=== PATIENT | male | born 1995 | race Caucasian/White ===

== ENCOUNTER 2017-10-13 21:30 | Emergency (ER) | payer SELFPAY ==
[~2017-10-13] VITALS: Ht 172.7 cm; Wt 63.0 kg
[2017-10-13] MEDS ORDERED: OLANZAPINE 10 MG TABLET ONE (21:58)
[2017-10-13] MEDS ORDERED: LORazepam 1MG TABLET ONE (21:59)
[2017-10-13] MEDS ORDERED: LORazepam 1MG TABLET PO ONE (22:00)
[2017-10-13] MEDS ORDERED: OLANZAPINE 10 MG TABLET PO ONE (22:00)
[2017-10-13 22:26] VITALS: BP 132/80
== END 2017-10-13 22:30 | disposition home or self-care (01) ==
LOC: ED 22:24
DX: F19.950 Other psychoactive substance use, unspecified with psychoactive substance-induced psychotic disorder with delusions (principal); F41.1 Generalized anxiety disorder; F17.200 Nicotine dependence, unspecified, uncomplicated
CPT/HCPCS: 99284